=== PATIENT | male | born 1970 | race Caucasian/White ===

== ENCOUNTER 2018-06-13 17:36 | Emergency (ER) | payer SELFPAY ==
[2018-06-13 17:45] VITALS: BMI 28.9
--- NOTE | 2018-06-13 18:04 | ED PDOC ---
HPI: Psych/Substance Abuse Time Seen by Provider: 06/13/18 17:50 Chief Complaint (Nursing): Alcohol Ingestion Chief Complaint (Provider): etoh History Per: Patient Additional Complaint(s): 48 year old male presents to ED intoxicated. Patient states he has bene drinking vodka since this morning. He offers no acute medical complaints. PMD: none Past Medical History Reviewed: Historical Data, Nursing Documentation, Vital Signs Vital Signs: Last Vital Signs Temp 98.8 F 06/13/18 17:43 Pulse 105 H 06/13/18 17:43 Resp 16 06/13/18 17:43 BP 158/86 H 06/13/18 17:43 Pulse Ox 97 06/13/18 17:43 - Medical History PMH: No Chronic Diseases - Surgical History Surgical History: No Surg Hx - Family History Family History: States: No Known Family Hx - Living Arrangements Living Arrangements: With Family - Social History Current smoker - smoking cessation education provided: No Alcohol: Social Drugs: Denies - Home Medications Home Medications: Ambulatory Orders Medication Instructions Recorded No Known Home Med 01/09/18 - Allergies Allergies/Adverse Reactions: Allergies Allergy/AdvReac Type Severity Reaction Status Date / Time No Known Allergies Allergy Verified 02/25/16 06:35 Review of Systems ROS Statement: Except As Marked, All Systems Reviewed And Found Negative Psych: Positive for: Other (etoh) Physical Exam - Reviewed Nursing Documentation Reviewed: Yes Vital Signs Reviewed: Yes - Physical Exam Appears: Positive for: Well, Non-toxic, No Acute Distress Skin: Positive for: Normal Color. Negative for: Rash Eye Exam: Positive for: Normal appearance Cardiovascular/Chest: Positive for: Regular Rate, Rhythm Respiratory: Positive for: Normal Breath Sounds Back: Positive for: Normal Inspection Extremity: Positive for: Normal ROM Neurologic/Psych: Positive for: Alert, Oriented - Laboratory Results Result Diagrams: 06/13/18 18:17 06/13/18 18:17 - ECG O2 Sat by Pulse Oximetry: 97 Pulse Ox Interpretation: Normal Medical Decision Making Medical Decision Makin48 year old intoxicated male Plan: CBC CMP BAL Fingerstick: 90 7:30 pm: BAL is 420 9:30 pm: Patient is asleep, arousable, vital signs are stable. 11:30 pm: Patient is asleep, arousable, vital signs are stable Disposition - Clinical Impression Clinical Impression: Alcohol intoxication - Patient ED Disposition Is Patient to be Admitted: Transfer of Care - Disposition Disposition: Transfer of Care Disposition Time: 23:42 Condition: FAIR Forms: [employer] (Yoruba) Patient Signed Over To: Bouchra Duncan PA-C Handoff Comments: Signed out pending sobriety and final disposition
[2018-06-13 18:27] LABS: BASO # 0.1 K/uL (0.0-0.2); BASO % 1.1 % (0.0-2.0); EOS # 0.1 K/uL (0.0-0.7); EOS % 1.6 % (0.0-4.0); HEMOGLOBIN 12.4 g/dL (12.0-18.0); LYMPH # 1.7 K/uL (1.0-4.3); LYMPH % 31.5 % (20.0-40.0); MEAN CELL VOLUME 91.4 fl (80.0-94.0); MEAN CORPUSCULAR HEMOGLOBIN 31.1 pg (27.0-31.0); MEAN PLATELET VOLUME 7.3 fl (7.2-11.7); MONO # 0.5 K/uL (0.0-0.8); MONO % 9.6 % (0.0-10.0); NEUT % 56.2 % (50.0-75.0); RBC 3.98 Mil/uL (4.40-5.90); RED CELL DISTRIBUTION WIDTH 15.6 % (11.5-14.5); WHITE BLOOD COUNT 5.3 K/uL (4.8-10.8)
[2018-06-13 18:46] LABS: BLOOD UREA NITROGEN 8 mg/dl (9-20); CALCIUM 8.9 mg/dL (8.4-10.2); GFR AFRICAN-AMERICAN > 60; GFR NON-AFRICAN AMERICAN > 60
--- NOTE | 2018-06-13 23:45 | ED PDOC ---
- Laboratory Results Result Diagrams: 06/13/18 18:17 06/13/18 18:17 - ECG O2 Sat by Pulse Oximetry: 97 - Progress ED Course And Treament: 0000 Case endorsed to me from EMILY Jin at 0000 pending patient sobriety. Patient' s BAL 420. He is sleeping comfortably in bed in at this time in no acute distress, breathing is easy and unlabored. 0039 On re-evaluation, patient is AAOx3, with no slurred speech, no tremors, able to ambulate with a steady gait. States that he wants to go home, he feels well, has no complaints. VS T 98 P 87 R 18 BP 137/84 O2sat 98%RA. Patient is stable for d/c. Advised to drink plenty of water and to follow up with the clinic. Disposition - Clinical Impression Clinical Impression: Alcohol intoxication - POA Present On Arrival: None - Disposition Referrals: [facility] [place] Disposition: Routine/Home Disposition Time: 00:40 Condition: STABLE Instructions: Alcohol Abuse and Alcoholism (DC) Forms: [employer](TM) by [employer] (Rwandan) - PA / [employer] CLE[employer]ER / Resident Statement /DO has reviewed & agrees with the documentation as recorded.
[2018-06-14 00:50] VITALS: BP 137/84; PULSE 87; RESP 18; TEMP 98
[2018-06-14 03:06] VITALS: O2SAT 97
== END 2018-06-14 00:52 | disposition home or self-care (01) ==
LOC: H.ER 17:36
DX: F10.129 Alcohol abuse with intoxication, unspecified (principal)
CPT/HCPCS: 80048; 82948; 85025; 99283; G0480